=== PATIENT | female | born 2005 | race Caucasian/White ===

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

== ENCOUNTER → 2024-03-20 | Outpatient (CLI) | payer BC ==
--- NOTE | 2024-03-20 14:07 | US ---
EXAMINATION TYPE: US abdomen complete DATE OF EXAM: 03/20/2024 COMPARISON: NONE CLINICAL INDICATION: Female, 18 years old with history of E80.7 DISORDER OF BILIRUBIN METABOLISM, UNS PECIFIE; Abnormal labs TECHNIQUE: Grayscale and color Doppler imaging of the abdomen was performed. FINDINGS: EXAM MEASUREMENTS: Liver Length: 10.9 cm Gallbladder Wall: 0.1 cm CBD: 0.2 cm, color Doppler imaging was utilized to isolate the common bile duct for measurement. Spleen: 10.7 cm Right Kidney: 9.2 x 4.0 x 3.1 cm Left Kidney: 9.8 x 4.8 x 3.7 cm Pancreas: wnl Liver: wnl Gallbladder: No stones or wall thickening Evidence for sonographic Anderson's sign: neg CBD: wnl Spleen: wnl Right Kidney: No hydronephrosis or masses seen Left Kidney: No hydronephrosis or masses seen Upper IVC: wnl Abd Aorta: No AAA visualized at time of scan IMPRESSION: No gallstones or biliary ductal dilatation. No specific sonographic abnormality seen. [facility], Workstation: [email or web address]YRIS, 03/20/2024 2:05 PM
== END | disposition home or self-care (01) ==
LOC: RADUSWWP 09:50
PROVIDERS: ATTEND Emergency Medicine
DX: E80.7 Disorder of bilirubin metabolism, unspecified (principal)
CPT/HCPCS: 76700